=== PATIENT | female | born 1980 | race Two or more races ===

== ENCOUNTER 2024-03-28 21:33 | Emergency (ER) | payer OTHER ==
[~2024-03-28] VITALS: Ht 157.5 cm; Wt 79.4 kg
[2024-03-28] MEDS ORDERED: KETOROLAC TROMETHAMINE 30 MG VIAL IM STA (22:11)
[2024-03-28] MEDS ORDERED: KETOROLAC TROMETHAMINE 30 MG VIAL ONE (22:22)
[2024-03-29] MEDS ORDERED: DICLOFENAC POTA50 MG PO (00:07)
== END 2024-03-29 00:22 | disposition home or self-care (01) ==
LOC: ER 21:34
DX: M72.2 Plantar fascial fibromatosis (principal); I10 Essential (primary) hypertension; Z88.0 Allergy status to penicillin

== ENCOUNTER 2024-08-21 10:37 | Emergency (ER) | payer OTHER ==
[~2024-08-21] VITALS: Ht 157.5 cm; Wt 79.8 kg
[~2024-08-21 10:37] MED LIST: DICLOFENAC POTA50 MG PO
[2024-08-21 11:28] VITALS: BP 140/80; O2SAT 99
[2024-08-21] MEDS ORDERED: ATORVASTATIN CA10 MG PO (11:28)
== END 2024-08-21 13:47 | disposition home or self-care (01) ==
LOC: ER 10:39
DX: R53.81 Other malaise (principal); J10.1 Influenza due to other identified influenza virus with other respiratory manifestations; Z20.822 Contact with and (suspected) exposure to COVID-19; Z88.0 Allergy status to penicillin